=== PATIENT | female | born 1955 | race Caucasian/White ===

== ENCOUNTER 2020-05-21 21:40 | Emergency (ER) | payer OTHER ==
[2020-05-21 22:23] LABS: BASOPHIL 0.2 % (0-2); EOSINOPHIL 0.1 % (0-7); HCT 35.7 % (37.0-47.0); HGB 11.4 g/dl (12.5-16.0); MCH 27.7 pg (25.0-31.0); MCHC 31.9 g/dL (32.0-36.0); MCV 86.9 fL (78.0-100.0); MONOCYTE 1.2 % (0-12); MPV 9.8 fL (6.0-9.5); NEUTROPHIL 84.5 % (41-80); NRBC 0; PLT 303 K/uL (150-400); RBC 4.11 M/uL (4.20-5.40); RDW 13.5 % (11.5-14.0); WBC 9.4 K/uL (4.0-10.5)
[2020-05-21 22:33] LABS: INR 1.03 (0.9-1.2); PROTHROMBIN TIME 12.8 SECONDS (11.4-13.6); PTT 30.4 SECONDS (22.2-34.7)
[2020-05-21 22:35] LABS: D-DIMER 0.95 ug/mLFEU (0.00-0.41)
[2020-05-21 22:41] LABS: ALBUMIN 3.2 g/dL (3.4-5.0); BILIRUBIN - TOTAL 0.3 mg/dL (0.2-1.0); BUN/CREAT RATIO (CALC) 12.5 RATIO; C-REACTIVE PROTEIN 2.7 mg/dL (<=0.90); CREATININE 1.04 mg/dL (0.51-0.95); GLOBULIN (CALCULATION) 4.3 g/dL; POTASSIUM 3.7 mmol/L (3.5-5.1); TOTAL PROTEIN 7.5 g/dL (6.4-8.2)
[2020-05-21 22:49] LABS: LACTIC ACID 2.8 mmol/L (0.4-1.9)
[2020-05-21 23:09] LABS: BILIRUBIN NEGATIVE (NEGATIVE); BLOOD TRACE-LYSED Ery/uL (NEGATIVE); CLARITY CLEAR (CLEAR); COLOR YELLOW (YELLOW); GLUCOSE (U) NORMAL (NORMAL); LEUKOCYTES NEGATIVE Leu/uL (NEGATIVE); NITRITE NEGATIVE (NEGATIVE); PROTEIN NEGATIVE (NEGATIVE); SPECIFIC GRAVITY 1.025 (1.001-1.030); UROBILINOGEN 0.2 mg/dL (0.2-1.0); pH 5.5 (5.0-9.0)
[2020-05-21 23:14] LABS: BACTERIA TRACE; URINARY RBC RARE; URINARY WBC RARE
== END 2020-05-22 00:46 | disposition home or self-care (01) ==
LOC: FER 21:40
PROVIDERS: Emergency Medicine
DX: U07.1 COVID-19 (principal); M94.0 Chondrocostal junction syndrome [Tietze]; I10 Essential (primary) hypertension; E78.5 Hyperlipidemia, unspecified; Z79.82 Long term (current) use of aspirin; Z79.899 Other long term (current) drug therapy
CPT/HCPCS: 36415; 71045; 71275; 80053; 81001; 83605; 83880; 84145; 84484; 85025; 85379; 85610; 85730; 86140; 93005; J7030; Q9967